=== PATIENT | female | born 1945 | race Two or more races ===

== ENCOUNTER → 2023-08-19 09:41 | Outpatient (REF) | payer MEDICARE, OTHER, SELFPAY ==
[2023-08-19 11:00] LABS: ALT (SGPT) 21 U/L (0-35); AST (SGOT) 27 U/L (14-36); Albumin 3.7 g/dl (3.5-5.0); Alkaline Phosphatase 62 U/L (38-126); Blood Urea Nitrogen 20 mg/dl (7-17); Calcium 9.1 mg/dl (8.4-10.2); Chloride 104 mmol/L (98-107); Glucose 68 mg/dl (70-99); Potassium 3.9 mmol/L (3.5-5.1); Sodium 140 mmol/L (135-145); Total Bilirubin 0.5 mg/dl (0.2-1.3); Total Protein 6.2 g/dl (6.3-8.2); eGFR > 60.00
[2023-08-19 11:08] LABS: Carbon Dioxide 27 mmol/L (22-30)
[2023-08-19 14:50] LABS: % Basophils 0.7 % (0-2); % Lymphocytes 27.9 % (20.5-51.1); % Monocytes 11.7 % (1.7-9.3); % Neutrophils 58.7 % (42.2-75.2); Absolute Lymphocytes 1.1 10^3/uL (1.2-3.4); Absolute Monocytes 0.5 10^3/uL (0.1-0.6); Absolute Neutrophils 2.4 10^3/uL (1.4-6.5); Hematocrit 32.2 % (37.0-47.0); Hemoglobin 10.3 g/dL (12.0-16.0); Mean Corpuscular Hgb 31.8 pg (27.0-31.0); Mean Corpuscular Volume 99.4 fL (81.0-99.0); Mean Platelet Volume 10.8 fL (7.4-10.4); Nucleated Red Blood Cells % 0 %; Platelet Count 271 10^3/uL (130-400); Red Blood Cell Count 3.24 10^6/uL (4.20-5.40); Red Cell Dist. Width 15.1 % (11.5-14.5)
[2023-08-20 20:44] LABS: Beta-2-Microglobulin 2.4 mg/L (<=3.0)
[2023-08-22 00:05] LABS: Albumin 4.07 g/dL (3.75-5.01); Alpha 2 Globulin 0.65 g/dL (0.48-1.05); Free Kappa Light Chains,Quant 15.26 mg/L (3.30-19.40); Free Lambda Light Chains,Quant 8.69 mg/L (5.71-26.30); IgA 136 mg/dL (68-408); IgG 863 mg/dL (768-1632); IgM 14 mg/dL (35-263); Immunofixation Electrophoresis IFE Done; Kappa/Lambda Fr Light Ratio 1.76 (0.26-1.65); Total Protein-Electrophoresis 6.4 g/dL (6.3-8.2)
== END ==
LOC: REG 09:41
PROVIDERS: ATTENDING PHYSICIAN Internal Medicine Hematology & Oncology; FAMILY PHYSICIAN Nurse Practitioner Adult Health
DX: C90.02 Multiple myeloma in relapse (principal); D64.81 Anemia due to antineoplastic chemotherapy; R22.42 Localized swelling, mass and lump, left lower limb
CPT/HCPCS: 36415; 80053; 82232; 82784; 83521; 84155; 84165; 85025; 86334

== ENCOUNTER → 2023-09-03 14:55 | Outpatient (REF) | payer MEDICARE, OTHER, SELFPAY ==
[2023-09-03 15:14] LABS: % Basophils 0.5 % (0-2); % Eosinophils 1.4 % (0-6); % Immature Granulocytes 0.2 % (0-0.5); % Lymphocytes 29.2 % (20.5-51.1); % Neutrophils 59.7 % (42.2-75.2); Absolute Eosinophils 0.1 10^3/uL (0-0.7); Absolute Lymphocytes 1.6 10^3/uL (1.2-3.4); Absolute Monocytes 0.5 10^3/uL (0.1-0.6); Absolute Neutrophils 3.3 10^3/uL (1.4-6.5); Hematocrit 31.4 % (37.0-47.0); Hemoglobin 10.6 g/dL (12.0-16.0); Mean Corp Hgb Conc. 33.8 g/dL (33.0-37.0); Mean Corpuscular Hgb 32.4 pg (27.0-31.0); Mean Platelet Volume 9.6 fL (7.4-10.4); Nucleated Red Blood Cells % 0 %; Platelet Count 251 10^3/uL (130-400); Red Blood Cell Count 3.27 10^6/uL (4.20-5.40); Red Cell Dist. Width 13.3 % (11.5-14.5); White Blood Cell Count 5.6 10^3/uL (4.8-10.8)
[2023-09-03 15:28] LABS: ALT (SGPT) 17 U/L (0-35); AST (SGOT) 28 U/L (14-36); Albumin 4.1 g/dl (3.5-5.0); Alkaline Phosphatase 81 U/L (38-126); Blood Urea Nitrogen 21 mg/dl (7-17); Calcium 8.5 mg/dl (8.4-10.2); Carbon Dioxide 28 mmol/L (22-30); Chloride 104 mmol/L (98-107); Glucose 100 mg/dl (70-99); Potassium 4.1 mmol/L (3.5-5.1); Sodium 135 mmol/L (135-145); Total Bilirubin 0.3 mg/dl (0.2-1.3); Total Protein 6.7 g/dl (6.3-8.2); eGFR > 60.00
[2023-09-07 11:34] LABS: Albumin 4.21 g/dL (3.75-5.01); Alpha 1 Globulin 0.31 g/dL (0.19-0.46); Alpha 2 Globulin 0.76 g/dL (0.48-1.05); Free Kappa Light Chains,Quant 18.83 mg/L (3.30-19.40); Free Lambda Light Chains,Quant 11.55 mg/L (5.71-26.30); IgA 137 mg/dL (68-408); IgG 934 mg/dL (768-1632); IgM 12 mg/dL (35-263); Immunofixation Electrophoresis IFE Done; Kappa/Lambda Fr Light Ratio 1.63 (0.26-1.65); Total Protein-Electrophoresis 6.7 g/dL (6.3-8.2)
== END ==
LOC: REG 14:55
PROVIDERS: ATTENDING PHYSICIAN Internal Medicine Hematology & Oncology; FAMILY PHYSICIAN Nurse Practitioner Adult Health
DX: C90.02 Multiple myeloma in relapse (principal); D64.81 Anemia due to antineoplastic chemotherapy; R22.42 Localized swelling, mass and lump, left lower limb
CPT/HCPCS: 36415; 80053; 82784; 83521; 84155; 84165; 85025; 86334

== ENCOUNTER → 2023-09-17 15:10 | Outpatient (REF) | payer MEDICARE, OTHER, SELFPAY ==
[2023-09-17 15:58] LABS: % Basophils 0.4 % (0-2); % Eosinophils 1.5 % (0-6); % Immature Granulocytes 0.5 % (0-0.5); % Monocytes 11.6 % (1.7-9.3); Absolute Eosinophils 0.1 10^3/uL (0-0.7); Absolute Lymphocytes 1.7 10^3/uL (1.2-3.4); Absolute Monocytes 0.6 10^3/uL (0.1-0.6); Absolute Neutrophils 3.1 10^3/uL (1.4-6.5); Hematocrit 29.8 % (37.0-47.0); Hemoglobin 10.1 g/dL (12.0-16.0); Mean Corp Hgb Conc. 33.9 g/dL (33.0-37.0); Mean Corpuscular Hgb 32.1 pg (27.0-31.0); Mean Corpuscular Volume 94.6 fL (81.0-99.0); Mean Platelet Volume 10.1 fL (7.4-10.4); Nucleated Red Blood Cells % 0 %; Platelet Count 276 10^3/uL (130-400); Red Blood Cell Count 3.15 10^6/uL (4.20-5.40); Red Cell Dist. Width 12.6 % (11.5-14.5); White Blood Cell Count 5.5 10^3/uL (4.8-10.8)
[2023-09-21 17:02] LABS: Albumin 4.04 g/dL (3.75-5.01); Alpha 1 Globulin 0.29 g/dL (0.19-0.46); Alpha 2 Globulin 0.73 g/dL (0.48-1.05); Free Kappa Light Chains,Quant 15.16 mg/L (3.30-19.40); Free Lambda Light Chains,Quant 11.01 mg/L (5.71-26.30); IgA 141 mg/dL (68-408); IgG 837 mg/dL (768-1632); IgM 13 mg/dL (35-263); Immunofixation Electrophoresis IFE Done; Kappa/Lambda Fr Light Ratio 1.38 (0.26-1.65); Total Protein-Electrophoresis 6.5 g/dL (6.3-8.2)
== END ==
LOC: REG 15:10
PROVIDERS: ATTENDING PHYSICIAN Internal Medicine Hematology & Oncology; FAMILY PHYSICIAN Nurse Practitioner Adult Health
DX: C90.02 Multiple myeloma in relapse (principal); D64.81 Anemia due to antineoplastic chemotherapy; R22.42 Localized swelling, mass and lump, left lower limb
CPT/HCPCS: 36415; 82784; 83521; 84155; 84165; 85025; 86334

== ENCOUNTER → 2023-10-02 12:35 | Outpatient (REF) | payer MEDICARE, OTHER, SELFPAY ==
[2023-10-02 13:51] LABS: % Basophils 0.4 % (0-2); % Eosinophils 0.8 % (0-6); % Immature Granulocytes 0.2 % (0-0.5); % Lymphocytes 33.1 % (20.5-51.1); % Monocytes 9.5 % (1.7-9.3); Absolute Lymphocytes 1.8 10^3/uL (1.2-3.4); Absolute Monocytes 0.5 10^3/uL (0.1-0.6); Hematocrit 29.3 % (37.0-47.0); Hemoglobin 9.7 g/dL (12.0-16.0); Mean Corp Hgb Conc. 33.1 g/dL (33.0-37.0); Mean Corpuscular Hgb 31.2 pg (27.0-31.0); Mean Corpuscular Volume 94.2 fL (81.0-99.0); Mean Platelet Volume 10.3 fL (7.4-10.4); Nucleated Red Blood Cells % 0 %; Platelet Count 276 10^3/uL (130-400); Red Blood Cell Count 3.11 10^6/uL (4.20-5.40); Red Cell Dist. Width 12.6 % (11.5-14.5); White Blood Cell Count 5.3 10^3/uL (4.8-10.8)
[2023-10-02 14:28] LABS: ALT (SGPT) 18 U/L (0-35); AST (SGOT) 26 U/L (14-36); Alkaline Phosphatase 76 U/L (38-126); Blood Urea Nitrogen 22 mg/dl (7-17); Calcium 8.9 mg/dl (8.4-10.2); Carbon Dioxide 26 mmol/L (22-30); Chloride 103 mmol/L (98-107); Glucose 88 mg/dl (70-99); Potassium 4.4 mmol/L (3.5-5.1); Sodium 137 mmol/L (135-145); Total Bilirubin 0.2 mg/dl (0.2-1.3); Total Protein 6.5 g/dl (6.3-8.2); eGFR > 60.00
== END ==
LOC: REG 12:35
PROVIDERS: ATTENDING PHYSICIAN Internal Medicine Hematology & Oncology
DX: C90.02 Multiple myeloma in relapse (principal); D64.81 Anemia due to antineoplastic chemotherapy; R22.42 Localized swelling, mass and lump, left lower limb
CPT/HCPCS: 36415; 80053; 85025

== ENCOUNTER → 2023-10-28 11:20 | Outpatient (REF) | payer MEDICARE, OTHER, SELFPAY ==
[2023-10-28 12:13] LABS: % Basophils 0.4 % (0-2); % Eosinophils 0.4 % (0-6); % Immature Granulocytes 0.2 % (0-0.5); % Lymphocytes 36.4 % (20.5-51.1); % Monocytes 10.2 % (1.7-9.3); % Neutrophils 52.4 % (42.2-75.2); Absolute Lymphocytes 1.8 10^3/uL (1.2-3.4); Absolute Monocytes 0.5 10^3/uL (0.1-0.6); Absolute Neutrophils 2.6 10^3/uL (1.4-6.5); Hemoglobin 10.5 g/dL (12.0-16.0); Mean Corp Hgb Conc. 33.9 g/dL (33.0-37.0); Mean Corpuscular Hgb 31.4 pg (27.0-31.0); Mean Corpuscular Volume 92.8 fL (81.0-99.0); Mean Platelet Volume 10.2 fL (7.4-10.4); Nucleated Red Blood Cells % 0 %; Platelet Count 278 10^3/uL (130-400); Red Blood Cell Count 3.34 10^6/uL (4.20-5.40); Red Cell Dist. Width 12.5 % (11.5-14.5); White Blood Cell Count 4.9 10^3/uL (4.8-10.8)
[2023-10-28 13:28] LABS: ALT (SGPT) 20 U/L (0-35); AST (SGOT) 28 U/L (14-36); Albumin 4.4 g/dl (3.5-5.0); Alkaline Phosphatase 68 U/L (38-126); Blood Urea Nitrogen 20 mg/dl (7-17); Calcium 9.2 mg/dl (8.4-10.2); Carbon Dioxide 27 mmol/L (22-30); Chloride 102 mmol/L (98-107); Glucose 74 mg/dl (70-99); Potassium 4.7 mmol/L (3.5-5.1); Sodium 134 mmol/L (135-145); Total Bilirubin 0.3 mg/dl (0.2-1.3); eGFR > 60.00
[2023-10-31 13:41] LABS: Albumin 4.33 g/dL (3.75-5.01); Alpha 1 Globulin 0.29 g/dL (0.19-0.46); Alpha 2 Globulin 0.78 g/dL (0.48-1.05); Free Kappa Light Chains,Quant 14.24 mg/L (3.30-19.40); Free Lambda Light Chains,Quant 10.31 mg/L (5.71-26.30); IgA 136 mg/dL (68-408); IgG 898 mg/dL (768-1632); IgM 17 mg/dL (35-263); Immunofixation Electrophoresis IFE Done; Kappa/Lambda Fr Light Ratio 1.38 (0.26-1.65); Total Protein-Electrophoresis 6.9 g/dL (6.3-8.2)
== END ==
LOC: REG 11:20
PROVIDERS: ATTENDING PHYSICIAN Internal Medicine Hematology & Oncology; FAMILY PHYSICIAN Nurse Practitioner Adult Health
DX: C90.02 Multiple myeloma in relapse (principal); D64.81 Anemia due to antineoplastic chemotherapy; R22.42 Localized swelling, mass and lump, left lower limb
CPT/HCPCS: 36415; 80053; 82784; 83521; 84155; 84165; 85025; 86334

== ENCOUNTER → 2023-11-27 10:32 | Outpatient (REF) | payer MEDICARE, OTHER, SELFPAY ==
[2023-11-27 11:19] LABS: % Basophils 0.4 % (0-2); % Eosinophils 0.8 % (0-6); % Immature Granulocytes 0.2 % (0-0.5); % Lymphocytes 29.3 % (20.5-51.1); % Monocytes 10.6 % (1.7-9.3); % Neutrophils 58.7 % (42.2-75.2); Absolute Lymphocytes 1.5 10^3/uL (1.2-3.4); Absolute Monocytes 0.5 10^3/uL (0.1-0.6); Absolute Neutrophils 2.9 10^3/uL (1.4-6.5); Hematocrit 30.9 % (37.0-47.0); Hemoglobin 10.2 g/dL (12.0-16.0); Mean Corpuscular Hgb 31.3 pg (27.0-31.0); Mean Corpuscular Volume 94.8 fL (81.0-99.0); Mean Platelet Volume 10.1 fL (7.4-10.4); Nucleated Red Blood Cells % 0 %; Platelet Count 278 10^3/uL (130-400); Red Blood Cell Count 3.26 10^6/uL (4.20-5.40); Red Cell Dist. Width 12.9 % (11.5-14.5)
[2023-11-27 12:34] LABS: ALT (SGPT) 19 U/L (0-35); AST (SGOT) 27 U/L (14-36); Albumin 4.1 g/dl (3.5-5.0); Alkaline Phosphatase 73 U/L (38-126); Blood Urea Nitrogen 23 mg/dl (7-17); Calcium 9.4 mg/dl (8.4-10.2); Carbon Dioxide 27 mmol/L (22-30); Chloride 105 mmol/L (98-107); Glucose 82 mg/dl (70-99); Potassium 4.5 mmol/L (3.5-5.1); Sodium 138 mmol/L (135-145); Total Bilirubin 0.4 mg/dl (0.2-1.3); Total Protein 6.6 g/dl (6.3-8.2)
== END ==
LOC: REG 10:32
PROVIDERS: ATTENDING PHYSICIAN Internal Medicine Hematology & Oncology; FAMILY PHYSICIAN Nurse Practitioner Adult Health
DX: C90.02 Multiple myeloma in relapse (principal); D64.81 Anemia due to antineoplastic chemotherapy; R22.42 Localized swelling, mass and lump, left lower limb
CPT/HCPCS: 36415; 80053; 82784; 83521; 84155; 84165; 85025; 86334

== ENCOUNTER → 2023-12-24 16:22 | Outpatient (REF) | payer MEDICARE, OTHER, SELFPAY ==
[2023-12-24 16:51] LABS: % Basophils 0.3 % (0-2); % Eosinophils 1.2 % (0-6); % Immature Granulocytes 0.3 % (0-0.5); % Lymphocytes 31.1 % (20.5-51.1); % Neutrophils 58.1 % (42.2-75.2); Absolute Eosinophils 0.1 10^3/uL (0-0.7); Absolute Lymphocytes 1.9 10^3/uL (1.2-3.4); Absolute Monocytes 0.5 10^3/uL (0.1-0.6); Absolute Neutrophils 3.5 10^3/uL (1.4-6.5); Hematocrit 28.7 % (37.0-47.0); Hemoglobin 9.2 g/dL (12.0-16.0); Mean Corp Hgb Conc. 32.1 g/dL (33.0-37.0); Mean Corpuscular Hgb 31.2 pg (27.0-31.0); Mean Corpuscular Volume 97.3 fL (81.0-99.0); Mean Platelet Volume 9.8 fL (7.4-10.4); Nucleated Red Blood Cells % 0 %; Platelet Count 271 10^3/uL (130-400); Red Blood Cell Count 2.95 10^6/uL (4.20-5.40); Red Cell Dist. Width 13.2 % (11.5-14.5)
[2023-12-24 17:04] LABS: ALT (SGPT) 23 U/L (0-35); AST (SGOT) 29 U/L (14-36); Alkaline Phosphatase 78 U/L (38-126); Blood Urea Nitrogen 20 mg/dl (7-17); Calcium 8.9 mg/dl (8.4-10.2); Carbon Dioxide 27 mmol/L (22-30); Chloride 103 mmol/L (98-107); Glucose 100 mg/dl (70-99); Potassium 4.1 mmol/L (3.5-5.1); Sodium 137 mmol/L (135-145); Total Bilirubin 0.2 mg/dl (0.2-1.3); Total Protein 6.6 g/dl (6.3-8.2); eGFR > 60.00
== END ==
LOC: REG 16:22
PROVIDERS: ATTENDING PHYSICIAN Internal Medicine Hematology & Oncology; FAMILY PHYSICIAN Nurse Practitioner Adult Health
DX: C90.02 Multiple myeloma in relapse (principal); D64.81 Anemia due to antineoplastic chemotherapy; R22.42 Localized swelling, mass and lump, left lower limb
CPT/HCPCS: 36415; 80053; 82784; 83521; 84155; 84165; 85025; 86334

== ENCOUNTER → 2024-01-21 14:49 | Outpatient (REF) | payer MEDICARE, OTHER, SELFPAY ==
[2024-01-21 16:33] LABS: % Basophils 0.3 % (0-2); % Eosinophils 0.3 % (0-6); % Immature Granulocytes 0.3 % (0-0.5); % Lymphocytes 19.7 % (20.5-51.1); % Monocytes 5.7 % (1.7-9.3); % Neutrophils 73.7 % (42.2-75.2); Absolute Lymphocytes 1.5 10^3/uL (1.2-3.4); Absolute Monocytes 0.4 10^3/uL (0.1-0.6); Absolute Neutrophils 5.6 10^3/uL (1.4-6.5); Hemoglobin 9.8 g/dL (12.0-16.0); Mean Corp Hgb Conc. 33.8 g/dL (33.0-37.0); Mean Corpuscular Hgb 31.5 pg (27.0-31.0); Mean Corpuscular Volume 93.2 fL (81.0-99.0); Mean Platelet Volume 10.5 fL (7.4-10.4); Nucleated Red Blood Cells % 0 %; Platelet Count 286 10^3/uL (130-400); Red Blood Cell Count 3.11 10^6/uL (4.20-5.40); Red Cell Dist. Width 12.8 % (11.5-14.5); White Blood Cell Count 7.6 10^3/uL (4.8-10.8)
[2024-01-21 16:50] LABS: ALT (SGPT) 20 U/L (0-35); AST (SGOT) 30 U/L (14-36); Albumin 4.4 g/dl (3.5-5.0); Alkaline Phosphatase 83 U/L (38-126); Blood Urea Nitrogen 27 mg/dl (7-17); Calcium 9.5 mg/dl (8.4-10.2); Carbon Dioxide 24 mmol/L (22-30); Chloride 105 mmol/L (98-107); Glucose 103 mg/dl (70-99); Potassium 4.6 mmol/L (3.5-5.1); Sodium 138 mmol/L (135-145); Total Bilirubin 0.3 mg/dl (0.2-1.3); Total Protein 6.9 g/dl (6.3-8.2)
== END ==
LOC: REG 14:49
PROVIDERS: ATTENDING PHYSICIAN Internal Medicine Hematology & Oncology; FAMILY PHYSICIAN Nurse Practitioner Adult Health
DX: C90.02 Multiple myeloma in relapse (principal); D64.81 Anemia due to antineoplastic chemotherapy; R22.42 Localized swelling, mass and lump, left lower limb
CPT/HCPCS: 36415; 80053; 82784; 83521; 84155; 84165; 85025; 86334

== ENCOUNTER → 2024-01-23 14:41 | Outpatient (REF) | payer MEDICARE, OTHER, SELFPAY ==
[2024-01-23 16:12] LABS: Iron 66 ug/dl (37-170)
[2024-01-23 16:22] LABS: Percent Saturation 30 % (20-50); Total Iron Binding Capacity 220 ug/dl (265-497)
[2024-01-23 17:04] LABS: Vitamin B12 > 1000 pg/ml (239-931)
== END ==
LOC: OIDL 14:41
PROVIDERS: ATTENDING PHYSICIAN Internal Medicine Hematology & Oncology
DX: C90.02 Multiple myeloma in relapse (principal); D64.81 Anemia due to antineoplastic chemotherapy; F03.90 Unspecified dementia, unspecified severity, without behavioral disturbance, psychotic disturbance, mood disturbance, and anxiety
CPT/HCPCS: 82607; 82728; 83540; 83550

== ENCOUNTER → 2024-02-17 14:49 | Outpatient (REF) | payer MEDICARE, OTHER, SELFPAY ==
[2024-02-17 15:34] LABS: % Basophils 0.4 % (0-2); % Eosinophils 0.9 % (0-6); % Immature Granulocytes 0.2 % (0-0.5); % Lymphocytes 30.2 % (20.5-51.1); % Monocytes 8.7 % (1.7-9.3); % Neutrophils 59.6 % (42.2-75.2); Absolute Eosinophils 0.1 10^3/uL (0-0.7); Absolute Lymphocytes 1.7 10^3/uL (1.2-3.4); Absolute Monocytes 0.5 10^3/uL (0.1-0.6); Absolute Neutrophils 3.4 10^3/uL (1.4-6.5); Hematocrit 27.4 % (37.0-47.0); Hemoglobin 9.3 g/dL (12.0-16.0); Mean Corp Hgb Conc. 33.9 g/dL (33.0-37.0); Mean Corpuscular Hgb 31.2 pg (27.0-31.0); Mean Corpuscular Volume 91.9 fL (81.0-99.0); Nucleated Red Blood Cells % 0 %; Platelet Count 242 10^3/uL (130-400); Red Blood Cell Count 2.98 10^6/uL (4.20-5.40); Red Cell Dist. Width 12.7 % (11.5-14.5); White Blood Cell Count 5.6 10^3/uL (4.8-10.8)
[2024-02-17 16:23] LABS: ALT (SGPT) 18 U/L (0-35); AST (SGOT) 27 U/L (14-36); Albumin 4.2 g/dl (3.5-5.0); Alkaline Phosphatase 77 U/L (38-126); Blood Urea Nitrogen 24 mg/dl (7-17); Calcium 9.1 mg/dl (8.4-10.2); Carbon Dioxide 24 mmol/L (22-30); Chloride 105 mmol/L (98-107); Glucose 107 mg/dl (70-99); Potassium 4.4 mmol/L (3.5-5.1); Sodium 136 mmol/L (135-145); Total Bilirubin 0.2 mg/dl (0.2-1.3); Total Protein 6.5 g/dl (6.3-8.2); eGFR > 60.00
[2024-02-20 00:50] LABS: Beta-2-Microglobulin 2.7 mg/L (<=3.0)
== END ==
LOC: REG 14:49
PROVIDERS: ATTENDING PHYSICIAN Internal Medicine Hematology & Oncology; FAMILY PHYSICIAN Nurse Practitioner Adult Health
DX: C90.02 Multiple myeloma in relapse (principal); D64.81 Anemia due to antineoplastic chemotherapy; R22.42 Localized swelling, mass and lump, left lower limb
CPT/HCPCS: 36415; 80053; 82232; 82784; 83521; 84155; 84165; 85025; 86334

== ENCOUNTER → 2024-03-17 13:47 | Outpatient (REF) | payer MEDICARE, OTHER, SELFPAY ==
[2024-03-17 14:32] LABS: % Basophils 0.4 % (0-2); % Eosinophils 1.3 % (0-6); % Immature Granulocytes 0.4 % (0-0.5); % Lymphocytes 28.1 % (20.5-51.1); % Monocytes 9.4 % (1.7-9.3); % Neutrophils 60.4 % (42.2-75.2); Absolute Eosinophils 0.1 10^3/uL (0-0.7); Absolute Lymphocytes 1.5 10^3/uL (1.2-3.4); Absolute Monocytes 0.5 10^3/uL (0.1-0.6); Absolute Neutrophils 3.3 10^3/uL (1.4-6.5); Hematocrit 32.3 % (37.0-47.0); Hemoglobin 10.8 g/dL (12.0-16.0); Mean Corp Hgb Conc. 33.4 g/dL (33.0-37.0); Mean Corpuscular Volume 95.8 fL (81.0-99.0); Nucleated Red Blood Cells % 0 %; Platelet Count 285 10^3/uL (130-400); Red Blood Cell Count 3.37 10^6/uL (4.20-5.40); Red Cell Dist. Width 12.7 % (11.5-14.5); White Blood Cell Count 5.4 10^3/uL (4.8-10.8)
[2024-03-17 15:30] LABS: ALT (SGPT) 21 U/L (0-35); AST (SGOT) 29 U/L (14-36); Albumin 4.2 g/dl (3.5-5.0); Alkaline Phosphatase 75 U/L (38-126); Blood Urea Nitrogen 29 mg/dl (7-17); Calcium 9.4 mg/dl (8.4-10.2); Carbon Dioxide 29 mmol/L (22-30); Chloride 103 mmol/L (98-107); Glucose 105 mg/dl (70-99); Potassium 4.5 mmol/L (3.5-5.1); Sodium 141 mmol/L (135-145); Total Bilirubin 0.3 mg/dl (0.2-1.3); Total Protein 6.6 g/dl (6.3-8.2); eGFR 56.95
== END ==
LOC: REG 13:47
PROVIDERS: ATTENDING PHYSICIAN Internal Medicine Hematology & Oncology; FAMILY PHYSICIAN Nurse Practitioner Adult Health
DX: C90.02 Multiple myeloma in relapse (principal); D64.81 Anemia due to antineoplastic chemotherapy; R22.42 Localized swelling, mass and lump, left lower limb; R53.83 Other fatigue; F03.90 Unspecified dementia, unspecified severity, without behavioral disturbance, psychotic disturbance, mood disturbance, and anxiety; F32.A Depression, unspecified
CPT/HCPCS: 36415; 80053; 82784; 83521; 84155; 84165; 85025; 86334

== ENCOUNTER → 2024-04-14 11:10 | Outpatient (REF) | payer MEDICARE, OTHER, SELFPAY ==
[2024-04-14 12:04] LABS: % Basophils 0.3 % (0-2); % Eosinophils 0.3 % (0-6); % Immature Granulocytes 0.3 % (0-0.5); % Lymphocytes 26.1 % (20.5-51.1); % Monocytes 9.5 % (1.7-9.3); % Neutrophils 63.5 % (42.2-75.2); Absolute Lymphocytes 1.6 10^3/uL (1.2-3.4); Absolute Monocytes 0.6 10^3/uL (0.1-0.6); Absolute Neutrophils 3.8 10^3/uL (1.4-6.5); Hematocrit 29.6 % (37.0-47.0); Hemoglobin 9.6 g/dL (12.0-16.0); Mean Corp Hgb Conc. 32.4 g/dL (33.0-37.0); Mean Corpuscular Hgb 30.3 pg (27.0-31.0); Mean Corpuscular Volume 93.4 fL (81.0-99.0); Nucleated Red Blood Cells % 0 %; Platelet Count 274 10^3/uL (130-400); Red Blood Cell Count 3.17 10^6/uL (4.20-5.40); Red Cell Dist. Width 12.8 % (11.5-14.5)
[2024-04-14 12:27] LABS: ALT (SGPT) 20 U/L (0-35); AST (SGOT) 25 U/L (14-36); Albumin 4.1 g/dl (3.5-5.0); Alkaline Phosphatase 67 U/L (38-126); Blood Urea Nitrogen 28 mg/dl (7-17); Calcium 9.2 mg/dl (8.4-10.2); Carbon Dioxide 23 mmol/L (22-30); Chloride 102 mmol/L (98-107); Glucose 84 mg/dl (70-99); Potassium 4.7 mmol/L (3.5-5.1); Sodium 138 mmol/L (135-145); Total Bilirubin 0.3 mg/dl (0.2-1.3); Total Protein 6.4 g/dl (6.3-8.2)
[2024-04-17 09:27] LABS: Albumin 4.01 g/dL (3.75-5.01); Alpha 1 Globulin 0.29 g/dL (0.19-0.46); Alpha 2 Globulin 0.74 g/dL (0.48-1.05); Free Lambda Light Chains,Quant 12.24 mg/L (5.71-26.30); IgA 126 mg/dL (68-408); IgG 761 mg/dL (768-1632); IgM 19 mg/dL (35-263); Immunofixation Electrophoresis IFE Done; Kappa/Lambda Fr Light Ratio 1.45 (0.26-1.65); Total Protein-Electrophoresis 6.4 g/dL (6.3-8.2)
== END ==
LOC: REG 11:10
PROVIDERS: ATTENDING PHYSICIAN Internal Medicine Hematology & Oncology; FAMILY PHYSICIAN Nurse Practitioner Adult Health
DX: C90.02 Multiple myeloma in relapse (principal); D64.81 Anemia due to antineoplastic chemotherapy; R22.42 Localized swelling, mass and lump, left lower limb; R53.83 Other fatigue; F03.90 Unspecified dementia, unspecified severity, without behavioral disturbance, psychotic disturbance, mood disturbance, and anxiety; F32.A Depression, unspecified
CPT/HCPCS: 36415; 80053; 82784; 83521; 84155; 84165; 85025; 86334

== ENCOUNTER → 2024-05-11 15:01 | Outpatient (REF) | payer MEDICARE, OTHER, SELFPAY ==
[2024-05-11 16:24] LABS: % Basophils 0.4 % (0-2); % Immature Granulocytes 0.2 % (0-0.5); % Lymphocytes 25.7 % (20.5-51.1); % Monocytes 14.4 % (1.7-9.3); % Neutrophils 58.3 % (42.2-75.2); Absolute Eosinophils 0.1 10^3/uL (0-0.7); Absolute Lymphocytes 1.3 10^3/uL (1.2-3.4); Absolute Monocytes 0.7 10^3/uL (0.1-0.6); Hematocrit 28.8 % (37.0-47.0); Hemoglobin 9.6 g/dL (12.0-16.0); Mean Corp Hgb Conc. 33.3 g/dL (33.0-37.0); Mean Corpuscular Hgb 31.1 pg (27.0-31.0); Mean Corpuscular Volume 93.2 fL (81.0-99.0); Mean Platelet Volume 10.2 fL (7.4-10.4); Nucleated Red Blood Cells % 0 %; Platelet Count 260 10^3/uL (130-400); Red Blood Cell Count 3.09 10^6/uL (4.20-5.40); Red Cell Dist. Width 13.3 % (11.5-14.5); White Blood Cell Count 5.1 10^3/uL (4.8-10.8)
[2024-05-11 17:14] LABS: ALT (SGPT) 21 U/L (0-35); AST (SGOT) 26 U/L (14-36); Albumin 4.1 g/dl (3.5-5.0); Alkaline Phosphatase 58 U/L (38-126); Blood Urea Nitrogen 31 mg/dl (7-17); Calcium 8.8 mg/dl (8.4-10.2); Carbon Dioxide 26 mmol/L (22-30); Chloride 104 mmol/L (98-107); Glucose 82 mg/dl (70-99); Potassium 4.5 mmol/L (3.5-5.1); Sodium 141 mmol/L (135-145); Total Bilirubin < 0.1 mg/dl (0.2-1.3); Total Protein 6.5 g/dl (6.3-8.2); eGFR 56.95
[2024-05-14 09:48] LABS: Beta-2-Microglobulin 3.2 mg/L (<=3.0)
== END ==
LOC: REG 15:01
PROVIDERS: ATTENDING PHYSICIAN Internal Medicine Hematology & Oncology; FAMILY PHYSICIAN Nurse Practitioner Adult Health
DX: C90.02 Multiple myeloma in relapse (principal); D64.81 Anemia due to antineoplastic chemotherapy; R22.42 Localized swelling, mass and lump, left lower limb; R53.83 Other fatigue; F03.90 Unspecified dementia, unspecified severity, without behavioral disturbance, psychotic disturbance, mood disturbance, and anxiety; F32.A Depression, unspecified
CPT/HCPCS: 36415; 80053; 82232; 82784; 83521; 84155; 84165; 85025; 86334

== ENCOUNTER → 2024-06-07 14:53 | Outpatient (REF) | payer MEDICARE, OTHER, SELFPAY ==
[2024-06-07 16:40] LABS: % Basophils 0.3 % (0-2); % Immature Granulocytes 0.2 % (0-0.5); % Lymphocytes 27.2 % (20.5-51.1); % Monocytes 6.7 % (1.7-9.3); % Neutrophils 64.6 % (42.2-75.2); Absolute Eosinophils 0.1 10^3/uL (0-0.7); Absolute Lymphocytes 1.6 10^3/uL (1.2-3.4); Absolute Monocytes 0.4 10^3/uL (0.1-0.6); Absolute Neutrophils 3.9 10^3/uL (1.4-6.5); Hematocrit 30.6 % (37.0-47.0); Mean Corp Hgb Conc. 32.7 g/dL (33.0-37.0); Mean Corpuscular Hgb 31.4 pg (27.0-31.0); Mean Corpuscular Volume 96.2 fL (81.0-99.0); Mean Platelet Volume 10.5 fL (7.4-10.4); Nucleated Red Blood Cells % 0 %; Platelet Count 271 10^3/uL (130-400); Red Blood Cell Count 3.18 10^6/uL (4.20-5.40); Red Cell Dist. Width 12.8 % (11.5-14.5)
[2024-06-07 17:12] LABS: ALT (SGPT) 28 U/L (0-35); AST (SGOT) 29 U/L (14-36); Albumin 4.1 g/dl (3.5-5.0); Alkaline Phosphatase 78 U/L (38-126); Blood Urea Nitrogen 26 mg/dl (7-17); Carbon Dioxide 25 mmol/L (22-30); Chloride 103 mmol/L (98-107); Glucose 175 mg/dl (70-99); Potassium 4.2 mmol/L (3.5-5.1); Sodium 140 mmol/L (135-145); Total Bilirubin 0.1 mg/dl (0.2-1.3); Total Protein 6.5 g/dl (6.3-8.2); eGFR > 60.00
[2024-06-09 17:52] LABS: Beta-2-Microglobulin 2.4 mg/L (<=3.0)
== END ==
LOC: REG 14:53
PROVIDERS: ATTENDING PHYSICIAN Internal Medicine Hematology & Oncology
DX: C90.02 Multiple myeloma in relapse (principal); D64.81 Anemia due to antineoplastic chemotherapy; R22.42 Localized swelling, mass and lump, left lower limb; R53.83 Other fatigue; F03.90 Unspecified dementia, unspecified severity, without behavioral disturbance, psychotic disturbance, mood disturbance, and anxiety; F32.A Depression, unspecified
CPT/HCPCS: 36415; 80053; 82232; 82784; 83521; 84155; 84165; 85025; 86334

== ENCOUNTER 2024-07-19 15:52 | Emergency (ER) | payer MEDICARE, OTHER, SELFPAY ==
[2024-07-19 15:57] VITALS: BP 119/57
[2024-07-19] MEDS: ATIVAN 1 MG PO (18:18)
--- NOTE | 2024-07-19 18:31 | ED.GENMED ---
History of Present Illness
General
Chief Complaint: Fall
Source: other (Nursing and EMS)
Exam Limitations: dementia
Time Seen by Provider: 07/19/24 18:06
History of Present Illness
History of Present Illness:
This is a 79 year old female that comes in with by ambulance with c/o fall. Told that this was an unwitnessed fall but that they felt patient tripped over a book. Patient has a laceration to the right posterior scalp. Patient has dementia and just
keeps asking for someone to call her son. No other complainants
Past History
Past History
ED Past Medical History: Cancer (Multiple Myeloma), Psychiatric (Depression) and Other ( Dementia, Questionable mood disorder, Neuropathy, )
ED Past Surgical History: Other (Cornea transplants)
Social History
Tobacco: Non-smoker
Alcohol: None
Drug: None
Personal:
[facility] [facility])
Review of Systems
Review of Systems
Unable to obtain full review of systems at this time due to: dementia
All Other Systems: Not applicable
Constitutional: Reports no symptoms
EENT: Reports no symptoms
Respiratory: Reports no symptoms
Cardiac: Reports no symptoms
ABD/GI: Reports no symptoms
: Reports no symptoms
Musculoskeletal: Reports no symptoms
Skin: Reports other (Laceration to the posterior scalp, )
Neurological: Reports no symptoms
Endocrine: Reports no symptoms
Hematologic/Lymphatic: Reports no symptoms
Psychiatric: Reports anxiety
Phy Exam
General Physical Exam
General Presentation: no apparent distress
General age: appears stated age
General Skin: warm and dry
General Habitus: elderly
General Mental: usual mental status
General Hydration: appears well hydrated
General Chronic Disability: demented
ENT Exam
ENT Exam: TM's normal and neck supple
Eye Exam
Eye Exam: EOMI
Cardiovascular Exam
Cardiovascular Exam: regular rate/rhythm and no edema
Pulmonary Exam
Pulmonary Exam: lungs clear, no respiratory distress, no rales, chest non tender, no crackles, no rhonchi, no wheezing and no cough
Musculoskeletal Exam
Musculoskeletal Exam: full ROM, no edema and other (Negative for cervical neck tenderness)
Skin Exam
Skin Exam: normal color, warm/dry, no rash, no petechia and laceration (Right posterior scalp)
Psychiatric Exam
Psychiatric Exam: anxious
Course
Orders/Labs/Results
Orders:
Orders
07/19/24 15:56
CT Cervical Spine W/o Iv Contr Urgent
Comment:
Reason For Exam: trauma/ fall
CT Head W/o Iv Contrast Urgent
Comment:
Reason For Exam: Head injury/ fall
07/19/24 18:15
Lorazepam [Ativan] 1 mg PO NOW STA
Vital Signs
Initial and Last Documented VS:
Initial Vital Signs
Temp Pulse Resp BP Pulse Ox
98.2 F 68 16 119/57 99
07/19/24 15:57 07/19/24 15:57 07/19/24 15:57 07/19/24 15:57 07/19/24 15:57
Last Documented Vital Signs
Temp Pulse Resp BP Pulse Ox
98.2 F 68 16 119/57 99
07/19/24 15:57 07/19/24 15:57 07/19/24 15:57 07/19/24 15:57 07/19/24 15:57
Procedures
Laceration Closure
Right Posterior Scalp:
Status of Wound: clean
Size of Wound in cm: 4
Description of Wound Edges: sharp
Preparation: cleaned with saline
Revision/Debridement: routine- no revision
Type of Closure: other (Ruben 6)
MDM/Problems Addressed
Differential Diagnosis Includes:
accidental fall,
MDM/Problems Addressed:
This is a 79 year old female that is brought in by ambulance with c/o fall. Told that it appeared that she tripped over a book. Told that there was no LOC.
Will get CT head and neck.
Chronic conditions affecting care:
Dementia
Acute Exacerbation and/or Progression of Chronic Illness:
Dementia
*Radiology
Radiology exam reviewed: radiology read reviewed (CT head-No acute intracranial abnormality. CT cervical spine- Straightening of the normal cervical lordotic curvature. Degenerative changes. No findings to suggest cervical spine fracture.
Heterogeneous/nodular appearance of the left lobe of the Thyroid. Suggest dedicated elective Thyroid ) and other (CT cont- Ultrasound for more complete evaluation. )
*Pulse Oximetry
Patient hypoxic: no
*EKG
Interpreted by ED Provider?: NA
Rate: EKG- N/A
*Hotel Housekeeper Interpretation
Rate: Hotel Housekeeper- N/A
*Critical Care Note
Total Time (30-74mins, 75-104mins- exclusive of procedures): Not Applicable
ED Attending Note
-
Portions of this chart may have been created with voice recognition software.� Occasional wrong word or��sound alike� substitutions may have occurred due to the inherent limitations of voice recognition software.
Discharge Plan
Departure
Patient Disposition: Penitentiary/SNF
Date of Disposition: 07/19/24
Time of Disposition: 18:39
Patient with high blood pressure during this ER visit?: No
Condition: Good
Covid-19: Not Applicable
Discharge Problem:
Accidental fall, Laceration of scalp
Instructions: Laceration Repair With Ruben (DC), Preventing falls in adults
Prescriptions:
No Action
primidone 50 mg Tablet
50 mg PO HS
acyclovir 400 mg Tablet
400 mg PO BID
olanzapine 2.5 mg Tablet
2.5 mg PO DAILY
triamcinolone acetonide 0.1 % Cream
1 applic TOPICAL BID
prednisolone acetate 1 % Drops,Suspension
1 drp OPHTHALMIC (EYE) ONCE PRN (Reason: right eye)
magnesium 200 mg Tablet
200 mg PO DAILY
escitalopram oxalate 10 mg Tablet
10 mg PO DAILY
quetiapine 50 mg Tablet
50 mg PO DAILY
cholecalciferol (vitamin D3) 50 mcg (2,000 unit) Tablet
50 mcg PO BID
ycbheszygufo-tngdrqngfup-nqnbr 1,000-200 mcg Tablet,Disintegrating
1,000 tab PO DAILY
Referrals:
UNKNOWN - PT DOES,NOT KNOW [Family Provider] -
Activity Restrictions/Additional Instructions:
As discussed, patient CT of the head is normal and the cervical spine is negative for any fractures. There is noted to have nodules on the left lobe of the Thyroid that will need further evaluation with a Dedicated Ultrasound for the Thyroid.
Patient also has a laceration to the posterior right scalp that has [address] This will need to be removed by the family doctor in the next 7 days. Please gently pat the area with warm soapy water to keep it clean. Patient was also given
Ativan 1mg orally to help calm her. IF YOU HAVE ANY OTHER CONCERNS PLEASE RETURN TO THE EMERGENCY ROOM.
Interventions
Interventions:
*General Assessment Last Done: 07/19/24 15:57
ED- Fall Risk Assessment Last Done: 07/19/24 18:26
ED-Musculoskeletal Assessment Last Done: 07/19/24 16:00
ED- Neurological Assessment Last Done: 07/19/24 16:00
ED-Skin Assessment Last Done: 07/19/24 16:00
Discharge Date and Time
Print Language: SLOVAK
[2024-07-19 19:08] VITALS: BP 139/65
== END 2024-07-19 19:23 ==
LOC: EMR 15:52
PROVIDERS: EMERGENCY PHYSICIAN Emergency Medicine
DX: S01.01XA Laceration without foreign body of scalp, initial encounter (principal); W18.09XA Striking against other object with subsequent fall, initial encounter; F03.90 Unspecified dementia, unspecified severity, without behavioral disturbance, psychotic disturbance, mood disturbance, and anxiety; Z85.79 Personal history of other malignant neoplasms of lymphoid, hematopoietic and related tissues
CPT/HCPCS: 12002; 99284; 70450; 72125

== ENCOUNTER → 2024-07-27 14:16 | Outpatient (REF) | payer MEDICARE, OTHER, SELFPAY ==
[2024-07-27 15:02] LABS: % Basophils 0.1 % (0-2); % Eosinophils 0.6 % (0-6); % Immature Granulocytes 0.3 % (0-0.5); % Lymphocytes 24.3 % (20.5-51.1); % Monocytes 7.9 % (1.7-9.3); % Neutrophils 66.8 % (42.2-75.2); Absolute Lymphocytes 1.7 10^3/uL (1.2-3.4); Absolute Monocytes 0.6 10^3/uL (0.1-0.6); Absolute Neutrophils 4.7 10^3/uL (1.4-6.5); Hematocrit 28.2 % (37.0-47.0); Hemoglobin 9.2 g/dL (12.0-16.0); Mean Corp Hgb Conc. 32.6 g/dL (33.0-37.0); Mean Corpuscular Hgb 31.4 pg (27.0-31.0); Mean Corpuscular Volume 96.2 fL (81.0-99.0); Nucleated Red Blood Cells % 0 %; Platelet Count 274 10^3/uL (130-400); Red Blood Cell Count 2.93 10^6/uL (4.20-5.40); Red Cell Dist. Width 12.9 % (11.5-14.5); White Blood Cell Count 7.1 10^3/uL (4.8-10.8)
[2024-07-27 15:18] LABS: ALT (SGPT) 21 U/L (0-35); AST (SGOT) 24 U/L (14-36); Albumin 4.1 g/dl (3.5-5.0); Alkaline Phosphatase 68 U/L (38-126); Blood Urea Nitrogen 30 mg/dl (7-17); Calcium 8.8 mg/dl (8.4-10.2); Carbon Dioxide 28 mmol/L (22-30); Chloride 102 mmol/L (98-107); Glucose 107 mg/dl (70-99); Potassium 4.7 mmol/L (3.5-5.1); Sodium 135 mmol/L (135-145); Total Bilirubin 0.2 mg/dl (0.2-1.3); Total Protein 6.4 g/dl (6.3-8.2); eGFR 50.48
== END ==
LOC: REG 14:16
PROVIDERS: ATTENDING PHYSICIAN Internal Medicine Hematology & Oncology; FAMILY PHYSICIAN Nurse Practitioner Adult Health
DX: C90.02 Multiple myeloma in relapse (principal); D64.81 Anemia due to antineoplastic chemotherapy; R22.42 Localized swelling, mass and lump, left lower limb; R53.83 Other fatigue; F03.90 Unspecified dementia, unspecified severity, without behavioral disturbance, psychotic disturbance, mood disturbance, and anxiety; F32.A Depression, unspecified
CPT/HCPCS: 36415; 80053; 82784; 83521; 84155; 84165; 85025; 86334

== ENCOUNTER → 2024-08-25 11:35 | Outpatient (REF) | payer MEDICARE, OTHER, SELFPAY ==
[2024-08-25 12:09] LABS: % Basophils 0.4 % (0-2); % Eosinophils 0.6 % (0-6); % Immature Granulocytes 0.2 % (0-0.5); % Monocytes 9.3 % (1.7-9.3); % Neutrophils 59.5 % (42.2-75.2); Absolute Lymphocytes 1.5 10^3/uL (1.2-3.4); Absolute Monocytes 0.5 10^3/uL (0.1-0.6); Hemoglobin 9.7 g/dL (12.0-16.0); Mean Corp Hgb Conc. 32.3 g/dL (33.0-37.0); Mean Corpuscular Hgb 30.8 pg (27.0-31.0); Mean Corpuscular Volume 95.2 fL (81.0-99.0); Mean Platelet Volume 10.1 fL (7.4-10.4); Nucleated Red Blood Cells % 0 %; Platelet Count 274 10^3/uL (130-400); Red Blood Cell Count 3.15 10^6/uL (4.20-5.40); Red Cell Dist. Width 12.9 % (11.5-14.5)
[2024-08-25 14:15] LABS: ALT (SGPT) 19 U/L (0-35); AST (SGOT) 26 U/L (14-36); Albumin 4.3 g/dl (3.5-5.0); Alkaline Phosphatase 73 U/L (38-126); Blood Urea Nitrogen 38 mg/dl (7-17); Calcium 9.2 mg/dl (8.4-10.2); Carbon Dioxide 29 mmol/L (22-30); Chloride 102 mmol/L (98-107); Glucose 93 mg/dl (70-99); Potassium 4.9 mmol/L (3.5-5.1); Sodium 138 mmol/L (135-145); Total Bilirubin 0.4 mg/dl (0.2-1.3); Total Protein 6.7 g/dl (6.3-8.2); eGFR 45.48
== END ==
LOC: REG 11:35
PROVIDERS: ATTENDING PHYSICIAN Internal Medicine Hematology & Oncology
DX: C90.20 Extramedullary plasmacytoma not having achieved remission (principal); D64.81 Anemia due to antineoplastic chemotherapy; R22.42 Localized swelling, mass and lump, left lower limb; R53.83 Other fatigue; F03.90 Unspecified dementia, unspecified severity, without behavioral disturbance, psychotic disturbance, mood disturbance, and anxiety; F32.A Depression, unspecified
CPT/HCPCS: 36415; 80053; 82784; 83521; 84155; 84165; 85025; 86334

== ENCOUNTER → 2024-09-22 15:19 | Outpatient (REF) | payer MEDICARE, OTHER, SELFPAY ==
[2024-09-22 15:48] LABS: % Basophils 0.2 % (0-2); % Eosinophils 0.9 % (0-6); % Immature Granulocytes 0.2 % (0-0.5); % Lymphocytes 26.9 % (20.5-51.1); % Monocytes 8.6 % (1.7-9.3); % Neutrophils 63.2 % (42.2-75.2); Absolute Eosinophils 0.1 10^3/uL (0-0.7); Absolute Lymphocytes 1.6 10^3/uL (1.2-3.4); Absolute Monocytes 0.5 10^3/uL (0.1-0.6); Absolute Neutrophils 3.7 10^3/uL (1.4-6.5); Hematocrit 28.3 % (37.0-47.0); Hemoglobin 9.3 g/dL (12.0-16.0); Mean Corp Hgb Conc. 32.9 g/dL (33.0-37.0); Mean Corpuscular Hgb 31.7 pg (27.0-31.0); Mean Corpuscular Volume 96.6 fL (81.0-99.0); Mean Platelet Volume 10.2 fL (7.4-10.4); Nucleated Red Blood Cells % 0 %; Platelet Count 237 10^3/uL (130-400); Red Blood Cell Count 2.93 10^6/uL (4.20-5.40); Red Cell Dist. Width 13.2 % (11.5-14.5); White Blood Cell Count 5.8 10^3/uL (4.8-10.8)
[2024-09-22 16:03] LABS: ALT (SGPT) 21 U/L (0-35); AST (SGOT) 25 U/L (14-36); Albumin 4.4 g/dl (3.5-5.0); Alkaline Phosphatase 65 U/L (38-126); Blood Urea Nitrogen 43 mg/dl (7-17); Calcium 9.1 mg/dl (8.4-10.2); Carbon Dioxide 26 mmol/L (22-30); Chloride 102 mmol/L (98-107); Glucose 95 mg/dl (70-99); Potassium 4.7 mmol/L (3.5-5.1); Sodium 137 mmol/L (135-145); Total Bilirubin 0.4 mg/dl (0.2-1.3); Total Protein 6.6 g/dl (6.3-8.2); eGFR 45.48
== END ==
LOC: REG 15:19
PROVIDERS: ATTENDING PHYSICIAN Internal Medicine Hematology & Oncology; FAMILY PHYSICIAN Nurse Practitioner Adult Health
DX: C90.02 Multiple myeloma in relapse (principal); D64.81 Anemia due to antineoplastic chemotherapy; R22.42 Localized swelling, mass and lump, left lower limb; R53.83 Other fatigue; F03.90 Unspecified dementia, unspecified severity, without behavioral disturbance, psychotic disturbance, mood disturbance, and anxiety; F32.A Depression, unspecified
CPT/HCPCS: 36415; 80053; 82784; 83521; 84155; 84165; 85025; 86334

== ENCOUNTER → 2024-10-20 13:35 | Outpatient (REF) | payer MEDICARE, OTHER, SELFPAY ==
[2024-10-20 14:02] LABS: % Basophils 0.2 % (0-2); % Immature Granulocytes 0.3 % (0-0.5); % Lymphocytes 22.4 % (20.5-51.1); % Monocytes 7.5 % (1.7-9.3); % Neutrophils 68.6 % (42.2-75.2); Absolute Eosinophils 0.1 10^3/uL (0-0.7); Absolute Lymphocytes 1.4 10^3/uL (1.2-3.4); Absolute Monocytes 0.5 10^3/uL (0.1-0.6); Absolute Neutrophils 4.1 10^3/uL (1.4-6.5); Hematocrit 28.9 % (37.0-47.0); Hemoglobin 9.4 g/dL (12.0-16.0); Mean Corp Hgb Conc. 32.5 g/dL (33.0-37.0); Mean Corpuscular Volume 95.4 fL (81.0-99.0); Mean Platelet Volume 10.1 fL (7.4-10.4); Nucleated Red Blood Cells % 0 %; Platelet Count 239 10^3/uL (130-400); Red Blood Cell Count 3.03 10^6/uL (4.20-5.40); Red Cell Dist. Width 13.2 % (11.5-14.5)
[2024-10-20 15:44] LABS: ALT (SGPT) 25 U/L (0-35); AST (SGOT) 28 U/L (14-36); Albumin 4.3 g/dl (3.5-5.0); Alkaline Phosphatase 77 U/L (38-126); Blood Urea Nitrogen 31 mg/dl (7-17); Calcium 9.1 mg/dl (8.4-10.2); Carbon Dioxide 28 mmol/L (22-30); Chloride 104 mmol/L (98-107); Glucose 89 mg/dl (70-99); Potassium 5.1 mmol/L (3.5-5.1); Sodium 139 mmol/L (135-145); Total Bilirubin 0.3 mg/dl (0.2-1.3); Total Protein 6.6 g/dl (6.3-8.2); eGFR 50.48
== END ==
LOC: REG 13:35
PROVIDERS: ATTENDING PHYSICIAN Internal Medicine Hematology & Oncology; FAMILY PHYSICIAN Nurse Practitioner Adult Health
DX: C90.02 Multiple myeloma in relapse (principal); D64.81 Anemia due to antineoplastic chemotherapy; R22.42 Localized swelling, mass and lump, left lower limb; R53.83 Other fatigue; F03.90 Unspecified dementia, unspecified severity, without behavioral disturbance, psychotic disturbance, mood disturbance, and anxiety; F32.A Depression, unspecified
CPT/HCPCS: 36415; 80053; 82784; 83521; 84155; 84165; 85025; 86334

== ENCOUNTER → 2024-11-17 13:18 | Outpatient (REF) | payer MEDICARE, OTHER, SELFPAY ==
[2024-11-17 14:11] LABS: % Basophils 0.3 % (0-2); % Immature Granulocytes 0.3 % (0-0.5); % Lymphocytes 28.8 % (20.5-51.1); % Monocytes 9.2 % (1.7-9.3); % Neutrophils 60.4 % (42.2-75.2); Absolute Eosinophils 0.1 10^3/uL (0-0.7); Absolute Lymphocytes 1.7 10^3/uL (1.2-3.4); Absolute Monocytes 0.5 10^3/uL (0.1-0.6); Absolute Neutrophils 3.5 10^3/uL (1.4-6.5); Hemoglobin 9.8 g/dL (12.0-16.0); Mean Corp Hgb Conc. 32.7 g/dL (33.0-37.0); Mean Corpuscular Hgb 31.2 pg (27.0-31.0); Mean Corpuscular Volume 95.5 fL (81.0-99.0); Mean Platelet Volume 10.1 fL (7.4-10.4); Nucleated Red Blood Cells % 0 %; Platelet Count 267 10^3/uL (130-400); Red Blood Cell Count 3.14 10^6/uL (4.20-5.40); White Blood Cell Count 5.7 10^3/uL (4.8-10.8)
[2024-11-17 14:34] LABS: ALT (SGPT) 23 U/L (0-35); AST (SGOT) 24 U/L (14-36); Albumin 4.1 g/dl (3.5-5.0); Alkaline Phosphatase 66 U/L (38-126); Blood Urea Nitrogen 32 mg/dl (7-17); Calcium 8.8 mg/dl (8.4-10.2); Carbon Dioxide 26 mmol/L (22-30); Chloride 105 mmol/L (98-107); Glucose 120 mg/dl (70-99); Potassium 4.9 mmol/L (3.5-5.1); Sodium 139 mmol/L (135-145); Total Bilirubin 0.4 mg/dl (0.2-1.3); Total Protein 6.1 g/dl (6.3-8.2); eGFR 50.48
== END ==
LOC: REG 13:18
PROVIDERS: ATTENDING PHYSICIAN Internal Medicine Hematology & Oncology; FAMILY PHYSICIAN Nurse Practitioner Adult Health
DX: C90.02 Multiple myeloma in relapse (principal); D64.81 Anemia due to antineoplastic chemotherapy; R22.2 Localized swelling, mass and lump, trunk; R53.83 Other fatigue; F03.90 Unspecified dementia, unspecified severity, without behavioral disturbance, psychotic disturbance, mood disturbance, and anxiety; F32.A Depression, unspecified
CPT/HCPCS: 36415; 80053; 82784; 83521; 84155; 84165; 85025; 86334

== ENCOUNTER → 2024-12-16 13:30 | Outpatient (REF) | payer MEDICARE, OTHER, SELFPAY ==
[2024-12-16 14:22] LABS: % Basophils 0.3 % (0-2); % Eosinophils 0.6 % (0-6); % Immature Granulocytes 0.3 % (0-0.5); % Lymphocytes 22.5 % (20.5-51.1); % Monocytes 7.7 % (1.7-9.3); % Neutrophils 68.6 % (42.2-75.2); Absolute Eosinophils 0.1 10^3/uL (0-0.7); Absolute Lymphocytes 1.8 10^3/uL (1.2-3.4); Absolute Monocytes 0.6 10^3/uL (0.1-0.6); Absolute Neutrophils 5.3 10^3/uL (1.4-6.5); Hematocrit 30.6 % (37.0-47.0); Hemoglobin 10.2 g/dL (12.0-16.0); Mean Corp Hgb Conc. 33.3 g/dL (33.0-37.0); Mean Corpuscular Hgb 31.4 pg (27.0-31.0); Mean Corpuscular Volume 94.2 fL (81.0-99.0); Mean Platelet Volume 9.9 fL (7.4-10.4); Nucleated Red Blood Cells % 0 %; Platelet Count 257 10^3/uL (130-400); Red Blood Cell Count 3.25 10^6/uL (4.20-5.40); Red Cell Dist. Width 13.1 % (11.5-14.5); White Blood Cell Count 7.8 10^3/uL (4.8-10.8)
[2024-12-16 15:25] LABS: ALT (SGPT) 23 U/L (0-35); AST (SGOT) 26 U/L (14-36); Albumin 4.3 g/dl (3.5-5.0); Alkaline Phosphatase 55 U/L (38-126); Blood Urea Nitrogen 33 mg/dl (7-17); Calcium 9.1 mg/dl (8.4-10.2); Carbon Dioxide 29 mmol/L (22-30); Chloride 105 mmol/L (98-107); Glucose 97 mg/dl (70-99); Potassium 5.1 mmol/L (3.5-5.1); Sodium 139 mmol/L (135-145); Total Bilirubin 0.2 mg/dl (0.2-1.3); Total Protein 6.8 g/dl (6.3-8.2)
== END ==
LOC: REG 13:30
PROVIDERS: ATTENDING PHYSICIAN Internal Medicine Hematology & Oncology; FAMILY PHYSICIAN Nurse Practitioner Adult Health
DX: C90.02 Multiple myeloma in relapse (principal); D64.81 Anemia due to antineoplastic chemotherapy; R22.42 Localized swelling, mass and lump, left lower limb; R53.83 Other fatigue; F03.90 Unspecified dementia, unspecified severity, without behavioral disturbance, psychotic disturbance, mood disturbance, and anxiety; F32.A Depression, unspecified
CPT/HCPCS: 36415; 80053; 82784; 83521; 84155; 84165; 85025; 86334

== ENCOUNTER → 2025-01-12 14:39 | Outpatient (REF) | payer MEDICARE, OTHER, SELFPAY ==
[2025-01-12 15:11] LABS: % Basophils 0.2 % (0-2); % Eosinophils 0.6 % (0-6); % Immature Granulocytes 0.2 % (0-0.5); % Lymphocytes 30.9 % (20.5-51.1); % Neutrophils 58.1 % (42.2-75.2); Absolute Lymphocytes 1.5 10^3/uL (1.2-3.4); Absolute Monocytes 0.5 10^3/uL (0.1-0.6); Absolute Neutrophils 2.9 10^3/uL (1.4-6.5); Hemoglobin 9.3 g/dL (12.0-16.0); Mean Corp Hgb Conc. 33.2 g/dL (33.0-37.0); Mean Corpuscular Hgb 31.4 pg (27.0-31.0); Mean Corpuscular Volume 94.6 fL (81.0-99.0); Mean Platelet Volume 9.7 fL (7.4-10.4); Nucleated Red Blood Cells % 0 %; Platelet Count 232 10^3/uL (130-400); Red Blood Cell Count 2.96 10^6/uL (4.20-5.40); Red Cell Dist. Width 13.2 % (11.5-14.5)
[2025-01-12 15:31] LABS: ALT (SGPT) 22 U/L (0-35); AST (SGOT) 25 U/L (14-36); Albumin 4.3 g/dl (3.5-5.0); Alkaline Phosphatase 55 U/L (38-126); Blood Urea Nitrogen 31 mg/dl (7-17); Calcium 8.9 mg/dl (8.4-10.2); Carbon Dioxide 28 mmol/L (22-30); Chloride 108 mmol/L (98-107); Glucose 110 mg/dl (70-99); Potassium 4.6 mmol/L (3.5-5.1); Sodium 138 mmol/L (135-145); Total Bilirubin 0.3 mg/dl (0.2-1.3); Total Protein 6.6 g/dl (6.3-8.2); eGFR > 60.00
== END ==
LOC: REG 14:39
PROVIDERS: ATTENDING PHYSICIAN Internal Medicine Hematology & Oncology; FAMILY PHYSICIAN Nurse Practitioner Adult Health
DX: C90.02 Multiple myeloma in relapse (principal); D64.81 Anemia due to antineoplastic chemotherapy; R22.42 Localized swelling, mass and lump, left lower limb; R53.83 Other fatigue; F03.90 Unspecified dementia, unspecified severity, without behavioral disturbance, psychotic disturbance, mood disturbance, and anxiety; F32.A Depression, unspecified
CPT/HCPCS: 36415; 80053; 82784; 83521; 84155; 84165; 85025; 86334

== ENCOUNTER → 2025-02-10 11:59 | Outpatient (REF) | payer MEDICARE, OTHER, SELFPAY ==
[2025-02-10 12:30] LABS: Hematocrit 30.9 % (37.0-47.0); Hemoglobin 9.9 g/dL (12.0-16.0); Mean Corp Hgb Conc. 32.0 g/dL (33.0-37.0); Mean Corpuscular Volume 96.3 fL (81.0-99.0); Nucleated Red Blood Cells % 0 %; Platelet Count 233 10^3/uL (130-400); Red Cell Dist. Width 13.1 % (11.5-14.5)
[2025-02-10 13:33] LABS: ALT (SGPT) 24 U/L (0-35); AST (SGOT) 28 U/L (14-36); Albumin 4.1 g/dl (3.5-5.0); Alkaline Phosphatase 55 U/L (38-126); Blood Urea Nitrogen 23 mg/dl (7-17); Calcium 8.9 mg/dl (8.4-10.2); Carbon Dioxide 28 mmol/L (22-30); Chloride 107 mmol/L (98-107); Glucose 68 mg/dl (70-99); Potassium 4.9 mmol/L (3.5-5.1); Sodium 139 mmol/L (135-145); Total Protein 6.3 g/dl (6.3-8.2); eGFR > 60.00
== END ==
LOC: REG 11:59
PROVIDERS: ATTENDING PHYSICIAN Internal Medicine Hematology & Oncology; FAMILY PHYSICIAN Nurse Practitioner Adult Health
DX: C90.02 Multiple myeloma in relapse (principal); D64.81 Anemia due to antineoplastic chemotherapy; R22.42 Localized swelling, mass and lump, left lower limb; R53.83 Other fatigue; F03.90 Unspecified dementia, unspecified severity, without behavioral disturbance, psychotic disturbance, mood disturbance, and anxiety; F32.A Depression, unspecified
CPT/HCPCS: 36415; 80053; 82232; 82784; 83521; 84155; 84165; 85025; 86334

== ENCOUNTER → 2025-03-17 16:19 | Outpatient (REF) | payer MEDICARE, OTHER, SELFPAY ==
[2025-03-17 16:52] LABS: Hematocrit 28.7 % (37.0-47.0); Hemoglobin 9.4 g/dL (12.0-16.0); Mean Corp Hgb Conc. 32.8 g/dL (33.0-37.0); Mean Corpuscular Volume 95.7 fL (81.0-99.0); Nucleated Red Blood Cells % 0 %; Platelet Count 233 10^3/uL (130-400); Red Cell Dist. Width 13.1 % (11.5-14.5)
[2025-03-17 17:05] LABS: ALT (SGPT) 22 U/L (0-35); AST (SGOT) 27 U/L (14-36); Albumin 4.3 g/dl (3.5-5.0); Alkaline Phosphatase 57 U/L (38-126); Blood Urea Nitrogen 22 mg/dl (7-17); Calcium 8.9 mg/dl (8.4-10.2); Carbon Dioxide 26 mmol/L (22-30); Chloride 107 mmol/L (98-107); Glucose 96 mg/dl (70-99); Potassium 4.6 mmol/L (3.5-5.1); Sodium 139 mmol/L (135-145); Total Protein 6.7 g/dl (6.3-8.2); eGFR > 60.00
== END ==
LOC: REG 16:19
PROVIDERS: ATTENDING PHYSICIAN Internal Medicine Hematology & Oncology; FAMILY PHYSICIAN Nurse Practitioner Adult Health
DX: C90.02 Multiple myeloma in relapse (principal); D64.81 Anemia due to antineoplastic chemotherapy; R22.42 Localized swelling, mass and lump, left lower limb; R53.83 Other fatigue; F03.90 Unspecified dementia, unspecified severity, without behavioral disturbance, psychotic disturbance, mood disturbance, and anxiety; F32.A Depression, unspecified
CPT/HCPCS: 36415; 80053; 82784; 83521; 84155; 84165; 85025; 86334

== ENCOUNTER → 2025-04-14 12:36 | Outpatient (REF) | payer MEDICARE, OTHER, SELFPAY ==
[2025-04-14 13:01] LABS: Hematocrit 30.2 % (37.0-47.0); Hemoglobin 9.9 g/dL (12.0-16.0); Mean Corp Hgb Conc. 32.8 g/dL (33.0-37.0); Mean Corpuscular Volume 96.8 fL (81.0-99.0); Nucleated Red Blood Cells % 0 %; Platelet Count 257 10^3/uL (130-400); Red Cell Dist. Width 13.0 % (11.5-14.5)
[2025-04-14 14:15] LABS: ALT (SGPT) 28 U/L (0-35); AST (SGOT) 30 U/L (14-36); Albumin 4.2 g/dl (3.5-5.0); Alkaline Phosphatase 68 U/L (38-126); Blood Urea Nitrogen 23 mg/dl (7-17); Calcium 9.2 mg/dl (8.4-10.2); Carbon Dioxide 28 mmol/L (22-30); Chloride 106 mmol/L (98-107); Glucose 96 mg/dl (70-99); Potassium 4.5 mmol/L (3.5-5.1); Sodium 138 mmol/L (135-145); Total Protein 6.8 g/dl (6.3-8.2); eGFR > 60.00
== END ==
LOC: REG 12:36
PROVIDERS: ATTENDING PHYSICIAN Internal Medicine Hematology & Oncology; FAMILY PHYSICIAN Nurse Practitioner Adult Health
DX: C90.02 Multiple myeloma in relapse (principal); D64.81 Anemia due to antineoplastic chemotherapy; R22.42 Localized swelling, mass and lump, left lower limb; R53.83 Other fatigue; F03.90 Unspecified dementia, unspecified severity, without behavioral disturbance, psychotic disturbance, mood disturbance, and anxiety; F32.A Depression, unspecified
CPT/HCPCS: 36415; 80053; 82232; 82784; 83521; 84155; 84165; 85025; 86334

== ENCOUNTER → 2025-05-19 12:49 | Outpatient (REF) | payer MEDICARE, OTHER, SELFPAY ==
[2025-05-19 13:53] LABS: Hematocrit 31.8 % (37.0-47.0); Hemoglobin 10.2 g/dL (12.0-16.0); Mean Corp Hgb Conc. 32.1 g/dL (33.0-37.0); Mean Corpuscular Volume 101.0 fL (81.0-99.0); Nucleated Red Blood Cells % 0 %; Platelet Count 270 10^3/uL (130-400); Red Cell Dist. Width 13.0 % (11.5-14.5)
[2025-05-19 14:17] LABS: ALT (SGPT) 21 U/L (0-35); AST (SGOT) 25 U/L (14-36); Albumin 4.1 g/dl (3.5-5.0); Alkaline Phosphatase 62 U/L (38-126); Blood Urea Nitrogen 22 mg/dl (7-17); Calcium 9.2 mg/dl (8.4-10.2); Carbon Dioxide 30 mmol/L (22-30); Chloride 102 mmol/L (98-107); Glucose 86 mg/dl (70-99); Potassium 4.6 mmol/L (3.5-5.1); Sodium 135 mmol/L (135-145); Total Protein 6.8 g/dl (6.3-8.2); eGFR 56.60
[2025-05-20 15:03] LABS: Iron 90 ug/dl (37-170)
[2025-05-20 15:12] LABS: Total Iron Binding Capacity 244 ug/dl (265-497)
[2025-05-20 16:10] LABS: Ferritin 76.7 ng/ml (11.1-264.0)
== END ==
LOC: REG 12:49
PROVIDERS: ATTENDING PHYSICIAN Internal Medicine Hematology & Oncology
DX: C90.02 Multiple myeloma in relapse (principal); D64.81 Anemia due to antineoplastic chemotherapy; R22.42 Localized swelling, mass and lump, left lower limb; R53.83 Other fatigue; F03.90 Unspecified dementia, unspecified severity, without behavioral disturbance, psychotic disturbance, mood disturbance, and anxiety; F32.A Depression, unspecified
CPT/HCPCS: 36415; 80053; 82728; 82784; 83521; 83540; 83550; 84155; 84165; 85025; 86334

== ENCOUNTER → 2025-06-14 13:27 | Outpatient (REF) | payer MEDICARE, OTHER, SELFPAY ==
[2025-06-14 14:04] LABS: Hematocrit 30.2 % (37.0-47.0); Hemoglobin 9.5 g/dL (12.0-16.0); Mean Corp Hgb Conc. 31.5 g/dL (33.0-37.0); Mean Corpuscular Volume 100.7 fL (81.0-99.0); Nucleated Red Blood Cells % 0 %; Platelet Count 261 10^3/uL (130-400); Red Cell Dist. Width 13.1 % (11.5-14.5)
[2025-06-14 15:34] LABS: ALT (SGPT) 22 U/L (0-35); AST (SGOT) 25 U/L (14-36); Albumin 4.0 g/dl (3.5-5.0); Alkaline Phosphatase 60 U/L (38-126); Blood Urea Nitrogen 26 mg/dl (7-17); Calcium 8.7 mg/dl (8.4-10.2); Carbon Dioxide 29 mmol/L (22-30); Chloride 103 mmol/L (98-107); Glucose 91 mg/dl (70-99); Potassium 4.5 mmol/L (3.5-5.1); Sodium 135 mmol/L (135-145); Total Protein 6.3 g/dl (6.3-8.2); eGFR 56.60
== END ==
LOC: REG 13:27
PROVIDERS: ATTENDING PHYSICIAN Internal Medicine Hematology & Oncology
DX: C90.02 Multiple myeloma in relapse (principal); D64.81 Anemia due to antineoplastic chemotherapy; R22.42 Localized swelling, mass and lump, left lower limb; R53.83 Other fatigue; F03.90 Unspecified dementia, unspecified severity, without behavioral disturbance, psychotic disturbance, mood disturbance, and anxiety; F32.A Depression, unspecified
CPT/HCPCS: 36415; 80053; 82784; 83521; 84155; 84165; 85025; 86334

== ENCOUNTER → 2025-07-15 11:04 | Outpatient (REF) | payer MEDICARE, OTHER, SELFPAY ==
[2025-07-15 12:35] LABS: Hematocrit 41.3 % (37.0-47.0); Hemoglobin 13.0 g/dL (12.0-16.0); Mean Corp Hgb Conc. 31.5 g/dL (33.0-37.0); Mean Corpuscular Volume 103.8 fL (81.0-99.0); Nucleated Red Blood Cells % 0 %; Platelet Count 227 10^3/uL (130-400); Red Cell Dist. Width 15.5 % (11.5-14.5)
[2025-07-15 12:55] LABS: ALT (SGPT) 23 U/L (0-35); AST (SGOT) 29 U/L (14-36); Albumin 4.4 g/dl (3.5-5.0); Alkaline Phosphatase 70 U/L (38-126); Blood Urea Nitrogen 26 mg/dl (7-17); Calcium 9.6 mg/dl (8.4-10.2); Carbon Dioxide 28 mmol/L (22-30); Chloride 104 mmol/L (98-107); Glucose 80 mg/dl (70-99); Iron 127 ug/dl (37-170); Potassium 5.0 mmol/L (3.5-5.1); Sodium 138 mmol/L (135-145); Total Protein 7.2 g/dl (6.3-8.2); eGFR > 60.00
[2025-07-15 13:04] LABS: Total Iron Binding Capacity 203 ug/dl (265-497)
[2025-07-15 14:20] LABS: Ferritin 353.0 ng/ml (11.1-264.0)
== END ==
LOC: REG 11:04
PROVIDERS: ATTENDING PHYSICIAN Internal Medicine Hematology & Oncology; FAMILY PHYSICIAN Nurse Practitioner Adult Health
DX: C90.02 Multiple myeloma in relapse (principal); D64.81 Anemia due to antineoplastic chemotherapy; R22.42 Localized swelling, mass and lump, left lower limb; R53.83 Other fatigue; F03.90 Unspecified dementia, unspecified severity, without behavioral disturbance, psychotic disturbance, mood disturbance, and anxiety; F32.A Depression, unspecified
CPT/HCPCS: 36415; 80053; 82232; 82728; 82784; 83521; 83540; 83550; 84155; 84165; 85025; 86334